=== PATIENT | female | born 1995 | race Caucasian/White ===

== ENCOUNTER 2023-03-12 11:01 | Emergency (ER) | payer MEDICAID, SELFPAY ==
[2023-03-12 11:02] VITALS: BP 94/66; PULSE 83; RESP 14; TEMP 36.2; O2SAT 100; BMI 23.2
[2023-03-12 11:09] VITALS: O2SAT 98
[2023-03-12 13:01] VITALS: RESP 16
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
[2023-03-12] MEDS: Ketorolac 15 MG/ML Vial IM (14:21)
[2023-03-12] MEDS: Orphenadrine 60 MG/2 ML Ampul IM (14:21)
== END 2023-03-12 14:47 | disposition home or self-care (01) ==
PROVIDERS: Emergency Provider Emergency Medicine; Visit Provider Emergency Medicine
DX: S09.90XA Unspecified injury of head, initial encounter (principal); W20.8XXA Other cause of strike by thrown, projected or falling object, initial encounter
CPT/HCPCS: 96372; 99283